=== PATIENT | male | born 1965 | race Two or more races ===

== ENCOUNTER 2018-10-24 13:44 | Inpatient (IN) | payer SELFPAY ==
[~2018-10-24] VITALS: Ht 162.6 cm; Wt 61.2 kg
[2018-10-24] VITALS (7 sets, daily range): BP systolic 100–118; BP diastolic 36–63
[2018-10-24] MEDS ORDERED: ONDANSETRON HCL 4MG/2ML INJ IV STA (14:11)
[2018-10-24] MEDS ORDERED: SODIUM CHLORIDE 0.9% 1,000 ML IV ONE (14:11)
[2018-10-24 15:02] LABS: INR 1.2; PROTHROMBIN TIME 12.6 sec (9.6-11.0)
[2018-10-24 15:03] LABS: CHLORIDE 104 mEq/L (98-107)
[2018-10-24 15:06] LABS: BASOPHILS % 0.3 % (0.0-2.0); EOSINOPHILS % 0.3 % (0.0-5.0); LYMPHOCYTES % 10.3 % (20.0-50.0); MEAN CORPUSCULAR HEMOGLOBIN 23.4 pg (28.0-32.0); MEAN CORPUSCULAR VOLUME 76.3 fL (80.0-94.0); MEAN PLATELET VOLUME 9.2 fl (7.4-10.4); MONOCYTES % 14.2 % (2.0-8.0); NEUTROPHILS % 74.9 % (40.0-76.0); RED BLOOD CELL COUNT 2.61 mill/uL (4.7-6.1); RED CELL DISTRIBUTION WIDTH 18.7 % (11.6-14.6)
[2018-10-24 15:11] LABS: ETHANOL BLOOD 218 mg/dL
[2018-10-24 15:14] LABS: HEMATOCRIT. 19.9 % (42.0-52.0); HEMOGLOBIN. 6.1 g/dL (14.0-18.0)
[2018-10-24] MEDS ORDERED: PANTOPRAZOLE SODIUM 40 MG/VIAL IV ONE (15:30)
[2018-10-24] MEDS ORDERED: MVI, ADULT NO.1 10 ML, FOLIC ACID 1 MG, THIAMINE HCL 100 MG in SODIUM CHLORIDE 0.9% 1,0... IV SCH ×4 (16:45)
[2018-10-24] MEDS ORDERED: MAGNESIUM/ALUMINUM HYDROXIDE/SIMETHICONE 30ML UDC PO PRN (16:45)
[2018-10-24] MEDS ORDERED: CLONIDINE 0.1MG TABLET PO PRN (16:45)
[2018-10-24] MEDS ORDERED: DOCUSATE SODIUM 100MG CAPSULE PO PRN (16:45)
[2018-10-24] MEDS ORDERED: GUAIFENESIN 200MG/10ML SUGAR FREE UDC PO PRN (16:45)
[2018-10-24] MEDS ORDERED: IPRATROPIUM/ALBUTEROL 0.5-3(2.5)MG/3ML NEB HHN PRN (16:45)
[2018-10-24] MEDS ORDERED: OCTREOTIDE 1,000 MCG in SODIUM CHLORIDE 0.9% 98 ML IV SCH ×2 (16:45→18:30)
[2018-10-24] MEDS ORDERED: ONDANSETRON HCL 4MG/2ML INJ IV PRN (16:45)
[2018-10-24 18:07] LABS: TOTAL IRON BINDING CAPACITY 347 ug/dL (250-450)
[2018-10-24 18:22] LABS: FOLIC ACID (FOLATE) SERUM 17.4 ng/mL (>5.38)
[2018-10-24] MEDS ORDERED: PANTOPRAZOLE 80 MG in SODIUM CHLORIDE 0.9% 100 ML IV SCH (19:30)
[2018-10-24 21:51] LABS: MEAN CORPUSCULAR HEMOGLOBIN 24.3 pg (28.0-32.0); MEAN CORPUSCULAR VOLUME 77.9 fL (80.0-94.0); RED BLOOD CELL COUNT 2.53 mill/uL (4.7-6.1); RED CELL DISTRIBUTION WIDTH 18.5 % (11.6-14.6)
[2018-10-24 21:54] LABS: HEMATOCRIT 19.7 % (42.0-52.0); HEMOGLOBIN 6.2 g/dL (14.0-18.0); PLATELET 26 x1000/uL (130-400)
[2018-10-24 21:57] LABS: CHLORIDE 109 mEq/L (98-107)
[2018-10-24 22:23] LABS: HEPATITIS B SURFACE ANTIGEN NEGATIVE
[2018-10-24 22:53] LABS: HEPATITIS A AB IGM NEGATIVE (NEGATIVE)
[2018-10-24] MEDS: PANTOPRAZOLE 80 MG in SODIUM CHLORIDE 0.9% 100 ML IV SCH (23:45)
[2018-10-25] VITALS (24 sets, daily range): BP systolic 115–144; BP diastolic 46–88
[2018-10-25 09:49] LABS: HEMATOCRIT 25.8 % (42.0-52.0); HEMOGLOBIN 8.4 g/dL (14.0-18.0)
[2018-10-25] MEDS: PANTOPRAZOLE 80 MG in SODIUM CHLORIDE 0.9% 100 ML IV SCH (12:14)
[2018-10-25] MEDS ORDERED: FENTANYL CITRATE/PF 50MCG/ML 2ML VIAL ONE (14:23)
[2018-10-25] MEDS ORDERED: MIDAZOLAM HCL 5 MG/5 ML VIAL ONE (14:23)
[2018-10-25] MEDS ORDERED: FENTANYL CITRATE/PF 50MCG/ML 2ML VIAL IV PRN (16:22)
[2018-10-25] MEDS ORDERED: MIDAZOLAM HCL 5 MG/5 ML VIAL IV PRN (16:28)
[2018-10-25] MEDS ORDERED: OCTREOTIDE 1,000 MCG in SODIUM CHLORIDE 0.9% 98 ML IV SCH ×2 (18:00→20:00)
[2018-10-25] MEDS: ACETAMINOPHEN 325MG TABLET PO PRN ×2 (18:26→23:43)
[2018-10-25] MEDS: LORAZEPAM 2MG/ML CPJ IV PRN (23:43)
[2018-10-26] VITALS (15 sets, daily range): BP systolic 112–155; BP diastolic 53–81
[2018-10-26] MEDS: PANTOPRAZOLE 80 MG in SODIUM CHLORIDE 0.9% 100 ML IV SCH ×2 (01:14→13:30)
[2018-10-26 09:59] LABS: PLATELET 35 x1000/uL (130-400)
[2018-10-26 10:21] LABS: CHLORIDE 107 mEq/L (98-107); HEMATOCRIT. 26.5 % (42.0-52.0); HEMOGLOBIN. 8.6 g/dL (14.0-18.0); MEAN CORPUSCULAR HEMOGLOBIN 27.3 pg (28.0-32.0); MEAN CORPUSCULAR VOLUME 84.5 fL (80.0-94.0); MEAN PLATELET VOLUME 8.3 fl (7.4-10.4); RED BLOOD CELL COUNT 3.14 mill/uL (4.7-6.1); RED CELL DISTRIBUTION WIDTH 20.1 % (11.6-14.6)
[2018-10-26 10:44] LABS: PLATELET 48 x1000/uL (130-400)
[2018-10-26] MEDS ORDERED: KCL 20MEQ/100ML PREMIX 100 ML IV SCH (13:00)
[2018-10-26 13:12] LABS: PLATELET ESTIMATE MARKEDLY DECREASED
[2018-10-26] MEDS: CEFTRIAXONE 1 G PREMIX 50 ML IV SCH (13:30)
[2018-10-27] VITALS (11 sets, daily range): BP systolic 103–144; BP diastolic 53–85
[2018-10-27] MEDS: LORAZEPAM 2MG/ML CPJ IV PRN ×5 (00:06→21:38)
[2018-10-27 06:39] LABS: INR 1.1; PROTHROMBIN TIME 11.6 sec (9.6-11.0)
[2018-10-27 06:50] LABS: HEMATOCRIT 28.3 % (42.0-52.0); HEMOGLOBIN 9.3 g/dL (14.0-18.0); MEAN CORPUSCULAR HEMOGLOBIN 27.1 pg (28.0-32.0); MEAN CORPUSCULAR VOLUME 82.9 fL (80.0-94.0); PLATELET 58 x1000/uL (130-400); RED BLOOD CELL COUNT 3.41 mill/uL (4.7-6.1); RED CELL DISTRIBUTION WIDTH 21.8 % (11.6-14.6)
[2018-10-27 06:52] LABS: CHLORIDE 106 mEq/L (98-107)
[2018-10-27] MEDS ORDERED: POTASSIUM CHLORIDE 20MEQ TABLET SR PO NR (08:15)
[2018-10-27] MEDS: CHLORDIAZEPOXIDE 5 MG CAPSULE PO SCH ×2 (08:47→14:00)
[2018-10-27] MEDS: CEFTRIAXONE 1 G PREMIX 50 ML IV SCH (11:53)
[2018-10-27] MEDS: CHLORDIAZEPOXIDE 25MG CAPSULE PO SCH (21:37)
[2018-10-28] VITALS (10 sets, daily range): BP systolic 76–144; BP diastolic 28–85
[2018-10-28] MEDS: LORAZEPAM 2MG/ML CPJ IV PRN ×2 (01:43→09:44)
[2018-10-28] MEDS: CHLORDIAZEPOXIDE 25MG CAPSULE PO SCH ×3 (06:42→21:58)
[2018-10-28] MEDS: CEFTRIAXONE 1 G PREMIX 50 ML IV SCH (12:52)
[2018-10-28] MEDS ORDERED: FOLIC ACID 1 MG, THIAMINE HCL 100 MG, MVI, ADULT NO.1 10 ML in DEXTROSE 5% WATER 1,000 ML IV NR ×4 (14:00)
[2018-10-28 15:19] LABS: HEMATOCRIT 29.5 % (42.0-52.0); HEMOGLOBIN 9.5 g/dL (14.0-18.0); MEAN CORPUSCULAR HEMOGLOBIN 27.1 pg (28.0-32.0); MEAN CORPUSCULAR VOLUME 84.4 fL (80.0-94.0); PLATELET 56 x1000/uL (130-400); RED CELL DISTRIBUTION WIDTH 21.9 % (11.6-14.6)
[2018-10-28] MEDS: ACETAMINOPHEN 325MG TABLET PO PRN (19:37)
[2018-10-29] VITALS (13 sets, daily range): BP systolic 84–125; BP diastolic 26–68
[2018-10-29] MEDS ORDERED: LACTULOSE 20G/30ML UDC PO SCH
[2018-10-29] MEDS ORDERED: FOLIC ACID 1 MG, THIAMINE HCL 100 MG, MVI, ADULT NO.1 10 ML in DEXTROSE 5% WATER 1,000 ML IV SCH ×8 (01:00→12:00)
[2018-10-29] MEDS: CHLORDIAZEPOXIDE 25MG CAPSULE PO SCH ×3 (06:06→21:24)
[2018-10-29 07:34] LABS: HEMATOCRIT. 28.5 % (42.0-52.0); HEMOGLOBIN. 9.2 g/dL (14.0-18.0); MEAN CORPUSCULAR VOLUME 83.9 fL (80.0-94.0); MEAN PLATELET VOLUME 8.8 fl (7.4-10.4); PLATELET 53 x1000/uL (130-400); RED CELL DISTRIBUTION WIDTH 21.4 % (11.6-14.6)
[2018-10-29 07:47] LABS: CHLORIDE 105 mEq/L (98-107)
[2018-10-29 07:54] LABS: INR 1.2; PROTHROMBIN TIME 12.3 sec (9.6-11.0)
[2018-10-29] MEDS ORDERED: POTASSIUM CHLORIDE 20MEQ TABLET SR PO SCH (09:00)
[2018-10-29] MEDS: LACTULOSE 20G/30ML UDC PO SCH ×3 (09:30→21:00)
[2018-10-29] MEDS: FERROUS SULFATE 325MG TABLET PO SCH ×2 (09:40→18:16)
[2018-10-29] MEDS: CEFTRIAXONE 1 G PREMIX 50 ML IV SCH (11:33)
[2018-10-29] MEDS ORDERED: MULTIVITAMINS,THER W-MINERALS TABLET PO SCH (12:00)
[2018-10-29] MEDS ORDERED: FOLIC ACID/VITAMIN B COMP W-C TABLET PO SCH (12:00)
[2018-10-29] MEDS ORDERED: THIAMINE HCL 100MG TABLET PO SCH (12:00)
[2018-10-29] MEDS: DEXT 5%/0.45% NACL 1000ML 1,000 ML IV SCH (14:42)
[2018-10-29 20:45] LABS: PLATELET ESTIMATE MARKEDLY DECREASED
[2018-10-30] VITALS (12 sets, daily range): BP systolic 97–134; BP diastolic 53–71
[2018-10-30] MEDS: DEXT 5%/0.45% NACL 1000ML 1,000 ML IV SCH ×3 (06:19→23:35)
[2018-10-30] MEDS: CHLORDIAZEPOXIDE 25MG CAPSULE PO SCH (06:19)
[2018-10-30 07:12] LABS: HEMATOCRIT. 28.7 % (42.0-52.0); HEMOGLOBIN. 9.2 g/dL (14.0-18.0); MEAN CORPUSCULAR VOLUME 84.3 fL (80.0-94.0); MEAN PLATELET VOLUME 9.5 fl (7.4-10.4); PLATELET 61 x1000/uL (130-400); RED BLOOD CELL COUNT 3.41 mill/uL (4.7-6.1); RED CELL DISTRIBUTION WIDTH 21.3 % (11.6-14.6)
[2018-10-30 07:30] LABS: CHLORIDE 107 mEq/L (98-107)
[2018-10-30] MEDS: THIAMINE HCL 100MG TABLET PO SCH (08:39)
[2018-10-30] MEDS: MULTIVITAMINS,THER W-MINERALS TABLET PO SCH (08:39)
[2018-10-30] MEDS: FERROUS SULFATE 325MG TABLET PO SCH ×2 (08:39→18:28)
[2018-10-30] MEDS: LACTULOSE 20G/30ML UDC PO SCH ×2 (08:40→21:41)
[2018-10-30] MEDS: FOLIC ACID/VITAMIN B COMP W-C TABLET PO SCH (08:40)
[2018-10-30 10:23] LABS: PLATELET ESTIMATE DECREASED
[2018-10-30] MEDS: CEFTRIAXONE 1 G PREMIX 50 ML IV SCH (11:53)
[2018-10-30] MEDS: CHLORDIAZEPOXIDE 5 MG CAPSULE PO SCH ×2 (14:20→21:41)
[2018-10-31] VITALS (7 sets, daily range): BP systolic 100–117; BP diastolic 43–68
[2018-10-31] MEDS: CHLORDIAZEPOXIDE 5 MG CAPSULE PO SCH (05:54)
[2018-10-31 06:31] LABS: HEMATOCRIT. 29.5 % (42.0-52.0); HEMOGLOBIN. 9.4 g/dL (14.0-18.0); MEAN CORPUSCULAR VOLUME 84.7 fL (80.0-94.0); MEAN PLATELET VOLUME 9.1 fl (7.4-10.4); PLATELET 62 x1000/uL (130-400); RED BLOOD CELL COUNT 3.48 mill/uL (4.7-6.1); RED CELL DISTRIBUTION WIDTH 21.7 % (11.6-14.6)
[2018-10-31 06:38] LABS: CHLORIDE 109 mEq/L (98-107)
[2018-10-31] MEDS: MULTIVITAMINS,THER W-MINERALS TABLET PO SCH (09:14)
[2018-10-31] MEDS: FERROUS SULFATE 325MG TABLET PO SCH (09:14)
[2018-10-31] MEDS: FOLIC ACID/VITAMIN B COMP W-C TABLET PO SCH (09:14)
[2018-10-31] MEDS: THIAMINE HCL 100MG TABLET PO SCH (09:14)
[2018-10-31] MEDS: LACTULOSE 20G/30ML UDC PO SCH (09:21)
[2018-10-31] MEDS ORDERED: FOLI-43 MT (10:38)
[2018-10-31] MEDS ORDERED: THIA50TA11 MT (10:38)
[2018-10-31] MEDS ORDERED: SUCR1TAB30 MT (10:39)
[2018-10-31] MEDS ORDERED: MULT-1146 MT (10:39)
[2018-10-31] MEDS ORDERED: PROT40 MT (10:39)
[2018-10-31] MEDS ORDERED: SENN-170 MT (10:40)
[2018-10-31] MEDS ORDERED: FERR325T6 MT (10:41)
[2018-10-31] MEDS ORDERED: LACT10SO7 MT (10:43)
[2018-10-31 10:45] LABS: PLATELET ESTIMATE DECREASED
[2018-10-31] MEDS: CEFTRIAXONE 1 G PREMIX 50 ML IV SCH (12:00)
== END 2018-10-31 12:15 | disposition home or self-care (01) ==
LOC: ER 13:44 → 5EST 15:57 → ENRESERV 16:29 → 5EST 18:40
PROVIDERS: ADMIT Internal Medicine; ATTEND Internal Medicine
PROC: 30233R1 Transfusion of Nonautologous Platelets into Peripheral Vein, Percutaneous Approach (ICD-10-PCS; principal; 2018-10-25)
PROC: 30233N1 Transfusion of Nonautologous Red Blood Cells into Peripheral Vein, Percutaneous Approach (ICD-10-PCS; 2018-10-25)
PROC: 06L38CZ Occlusion of Esophageal Vein with Extraluminal Device, Via Natural or Artificial Opening Endoscopic (ICD-10-PCS; 2018-10-25)
DX: K76.6 Portal hypertension (principal); I85.11 Secondary esophageal varices with bleeding; K72.90 Hepatic failure, unspecified without coma; D69.59 Other secondary thrombocytopenia; D62 Acute posthemorrhagic anemia; E44.1 Mild protein-calorie malnutrition; Y90.7 Blood alcohol level of 200-239 mg/100 ml; R00.1 Bradycardia, unspecified; K70.30 Alcoholic cirrhosis of liver without ascites; F10.239 Alcohol dependence with withdrawal, unspecified; K31.89 Other diseases of stomach and duodenum; K44.9 Diaphragmatic hernia without obstruction or gangrene; Z68.23 Body mass index [BMI] 23.0-23.9, adult
CPT/HCPCS: 36415; 71045; 76700; 80048; 80076; 80320; 82105; 82140; 82607; 82746; 83036; 83540; 83550; 83735; 85014; 85018; 85027; 85049; 86705; 86709; 86803; 86850; 86900; 86920; 86945; 87340; 93005; 96374; 97116; 97162; 97165; 99291; C9113; J0696; J2060; J2250; J2354; J2405; J3010; J3411; J3480; J3490; J7030; J7042; J7050; J7070; P9016; P9034; G0480

== ENCOUNTER 2020-11-30 23:32 | Inpatient (IN) | payer MEDICAID ==
[~2020-11-30] VITALS: Ht 157.5 cm; Wt 72.6 kg
[~2020-11-30 23:32] MED LIST: FERR325T6 MT; FOLI-43 MT; LACT10SO7 MT; MULT-1146 MT; PROT40 MT; SENN-257 MT; SUCR1TAB30 MT; THIA50TA12 MT
[2020-11-30] MEDS ORDERED: PANTOPRAZOLE SODIUM 40 MG/VIAL IV STA (23:39)
[2020-11-30] MEDS ORDERED: SODIUM CHLORIDE 0.9% 1,000 ML IV ONE (23:45)
[2020-11-30] MEDS ORDERED: OCTREOTIDE ACETATE 50 MCG/ML 1ML IV STA (23:47)
[2020-12-01 00:07] LABS: BASOPHILS % 0.5 % (0.0-2.0); EOSINOPHILS % 4.4 % (0.0-5.0); HEMOGLOBIN. 10.7 g/dL (14.0-18.0); LYMPHOCYTES % 26.5 % (20.0-50.0); MEAN CORPUSCULAR HEMOGLOBIN 34.8 pg (28.0-32.0); MEAN CORPUSCULAR VOLUME 100.5 fL (80.0-94.0); MEAN PLATELET VOLUME 8.7 fl (7.4-10.4); MONOCYTES % 8.7 % (2.0-8.0); NEUTROPHILS % 59.9 % (40.0-76.0); PLATELET 75 x1000/uL (130-400); RED BLOOD CELL COUNT 3.09 mill/uL (4.7-6.1); RED CELL DISTRIBUTION WIDTH 13.6 % (11.6-14.6)
[2020-12-01 00:15] LABS: CHLORIDE 109 mEq/L (98-107)
[2020-12-01 00:18] LABS: INR 1.2; PARTIAL THROMBOPLASTIN TIME 23.5 sec (23.4-31.0); PROTHROMBIN TIME 12.6 sec (9.6-11.0)
[2020-12-01] MEDS ORDERED: ONDANSETRON HCL 4MG/2ML INJ IV ONE ×2 (00:45→06:45)
[2020-12-01] MEDS ORDERED: CEFTRIAXONE 1 G PREMIX 50 ML IV ONE (00:45)
[2020-12-01] MEDS ORDERED: CALCIUM GLUCONATE 100MG/ML 10ML VIAL IV SCH (01:00)
[2020-12-01] MEDS ORDERED: SODIUM CHLORIDE 0.9% 1,000 ML IV ONE (01:45)
[2020-12-01] MEDS ORDERED: MORPHINE SULFATE 2 MG/ML CPJ (NOT FOR IM USE) IV SCH (05:30)
[2020-12-01] MEDS ORDERED: ONDANSETRON HCL 4MG/2ML INJ IV PRN (05:30)
[2020-12-01 08:00] VITALS: BP 105/49
[2020-12-01] MEDS ORDERED: DEXT 5%/0.45% NACL 500ML 1,000 ML IV ONE (08:00)
[2020-12-01] MEDS ORDERED: KCL 20MEQ/100ML PREMIX 100 ML IV SCH (08:00)
[2020-12-01] MEDS ORDERED: DEXT 5%/0.45% NACL 1000ML 1,000 ML IV ONE (10:15)
[2020-12-01] MEDS: PANTOPRAZOLE 80 MG in SODIUM CHLORIDE 0.9% 100 ML IV SCH ×2 (10:17→18:50)
[2020-12-01 11:12] LABS: BASOPHILS % 0.3 % (0.0-2.0); HEMATOCRIT. 26.8 % (42.0-52.0); HEMOGLOBIN. 9.1 g/dL (14.0-18.0); LYMPHOCYTES % 15.7 % (20.0-50.0); MEAN CORPUSCULAR HEMOGLOBIN 34.5 pg (28.0-32.0); MEAN CORPUSCULAR VOLUME 101.3 fL (80.0-94.0); MEAN PLATELET VOLUME 8.8 fl (7.4-10.4); MONOCYTES % 10.6 % (2.0-8.0); NEUTROPHILS % 72.4 % (40.0-76.0); PLATELET 55 x1000/uL (130-400); RED BLOOD CELL COUNT 2.64 mill/uL (4.7-6.1); RED CELL DISTRIBUTION WIDTH 13.8 % (11.6-14.6)
[2020-12-01 12:00] VITALS: BP 111/52
[2020-12-01] MEDS: OCTREOTIDE 1,000 MCG in SODIUM CHLORIDE 0.9% 98 ML IV SCH (12:04)
[2020-12-01 14:29] VITALS: BP 111/52
[2020-12-01] MEDS ORDERED: DEXT 5%/0.45% NACL 1000ML 1,000 ML IV SCH (16:00)
[2020-12-01 16:29] LABS: CHLORIDE 119 mEq/L (98-107)
[2020-12-01 20:00] VITALS: BP 128/70
[2020-12-01 20:14] LABS: *AMPHETAMINES SCREEN URINE NEGATIVE (NEGATIVE); *BARBITURATES SCREEN URINE NEGATIVE (NEGATIVE); *BENZODIAZEPINES SCREEN URINE NEGATIVE (NEGATIVE); *COCAINE SCREEN URINE NEGATIVE (NEGATIVE)
[2020-12-01 20:15] LABS: METHADONE URINE SCREEN NEGATIVE (NEGATIVE); OPIATES URINE SCREEN NEGATIVE (NEGATIVE)
[2020-12-01 20:16] LABS: CANNABINOID URINE SCREEN NEGATIVE (NEGATIVE); PHENCYCLIDINE URINE SCREEN NEGATIVE (NEGATIVE)
[2020-12-01] MEDS: PROPRANOLOL HCL 10MG TABLET PO SCH (20:38)
[2020-12-02] VITALS: BP 97/48
[2020-12-02 04:00] VITALS: BP 96/45
[2020-12-02] MEDS: OCTREOTIDE 1,000 MCG in SODIUM CHLORIDE 0.9% 98 ML IV SCH (05:01)
[2020-12-02 07:34] LABS: BASOPHILS % 0.6 % (0.0-2.0); EOSINOPHILS % 4.9 % (0.0-5.0); HEMATOCRIT. 23.1 % (42.0-52.0); HEMOGLOBIN. 7.8 g/dL (14.0-18.0); LYMPHOCYTES % 18.2 % (20.0-50.0); MEAN CORPUSCULAR HEMOGLOBIN 34.6 pg (28.0-32.0); MEAN CORPUSCULAR VOLUME 102.1 fL (80.0-94.0); MEAN PLATELET VOLUME 8.8 fl (7.4-10.4); MONOCYTES % 12.3 % (2.0-8.0); RED BLOOD CELL COUNT 2.26 mill/uL (4.7-6.1); RED CELL DISTRIBUTION WIDTH 14.2 % (11.6-14.6)
[2020-12-02 07:45] LABS: CHLORIDE 116 mEq/L (98-107)
[2020-12-02 07:51] LABS: TOTAL IRON BINDING CAPACITY 247 ug/dL (250-450)
[2020-12-02 08:17] LABS: VITAMIN B12 SERUM 991 pg/mL (211-911)
[2020-12-02] MEDS: PANTOPRAZOLE 80 MG in SODIUM CHLORIDE 0.9% 100 ML IV SCH ×2 (08:39→15:00)
[2020-12-02] MEDS: PROPRANOLOL HCL 10MG TABLET PO SCH ×2 (08:43→22:29)
[2020-12-02 11:30] LABS: FERRITIN 23 ng/mL (22-322)
[2020-12-02 11:42] LABS: HEPATITIS B SURFACE ANTIGEN NEGATIVE
[2020-12-02 12:00] VITALS: BP 97/42
[2020-12-02 12:37] LABS: PLATELET ESTIMATE MARKEDLY DECREASED
[2020-12-02 12:38] LABS: PLATELET 44 x1000/uL (130-400)
[2020-12-02 16:00] VITALS: BP 96/39
[2020-12-02 20:00] VITALS: BP 116/58
[2020-12-02 20:40] VITALS: BP 96/39
[2020-12-03] VITALS (10 sets, daily range): BP systolic 97–118; BP diastolic 41–54
[2020-12-03] MEDS: OCTREOTIDE 1,000 MCG in SODIUM CHLORIDE 0.9% 98 ML IV SCH ×2 (01:27→21:21)
[2020-12-03] MEDS: PANTOPRAZOLE 80 MG in SODIUM CHLORIDE 0.9% 100 ML IV SCH ×2 (01:28→11:02)
[2020-12-03 07:38] LABS: BASOPHILS % 0.3 % (0.0-2.0); EOSINOPHILS % 2.8 % (0.0-5.0); LYMPHOCYTES % 20.5 % (20.0-50.0); MEAN CORPUSCULAR HEMOGLOBIN 34.7 pg (28.0-32.0); MEAN CORPUSCULAR VOLUME 101.7 fL (80.0-94.0); MEAN PLATELET VOLUME 8.7 fl (7.4-10.4); MONOCYTES % 14.5 % (2.0-8.0); NEUTROPHILS % 61.9 % (40.0-76.0); RED BLOOD CELL COUNT 2.02 mill/uL (4.7-6.1); RED CELL DISTRIBUTION WIDTH 13.9 % (11.6-14.6)
[2020-12-03 07:49] LABS: HEMATOCRIT. 20.5 % (42.0-52.0)
[2020-12-03 08:43] LABS: CHLORIDE 114 mEq/L (98-107)
[2020-12-03] MEDS: PROPRANOLOL HCL 10MG TABLET PO SCH ×2 (09:00→21:00)
[2020-12-03 10:54] LABS: PLATELET 34 x1000/uL (130-400)
[2020-12-03 16:11] LABS: INR 1.1; PROTHROMBIN TIME 12.1 sec (9.6-11.0)
[2020-12-03 16:14] LABS: HEMATOCRIT 23.4 % (42.0-52.0); HEMOGLOBIN 8.1 g/dL (14.0-18.0)
[2020-12-03] MEDS ORDERED: GUAIFENESIN 200MG/10ML SUGAR FREE UDC PO PRN (16:45)
[2020-12-03] MEDS ORDERED: IPRATROPIUM/ALBUTEROL 0.5-3(2.5)MG/3ML NEB HHN PRN (16:45)
[2020-12-03] MEDS ORDERED: POTASSIUM CHLORIDE 20MEQ TABLET SR PO NR (17:45)
[2020-12-03] MEDS: DEXT 5%/0.45% NACL 1000ML 1,000 ML IV SCH (18:02)
[2020-12-04] VITALS: BP 110/57
[2020-12-04 03:56] VITALS: BP 101/49
[2020-12-04 06:31] LABS: INR 1.1; PROTHROMBIN TIME 12.2 sec (9.6-11.0)
[2020-12-04 06:33] LABS: BASOPHILS % 0.3 % (0.0-2.0); EOSINOPHILS % 2.5 % (0.0-5.0); HEMATOCRIT. 23.5 % (42.0-52.0); HEMOGLOBIN. 8.1 g/dL (14.0-18.0); LYMPHOCYTES % 12.5 % (20.0-50.0); MEAN CORPUSCULAR HEMOGLOBIN 34.6 pg (28.0-32.0); MEAN CORPUSCULAR VOLUME 99.8 fL (80.0-94.0); MEAN PLATELET VOLUME 9.1 fl (7.4-10.4); MONOCYTES % 10.3 % (2.0-8.0); NEUTROPHILS % 74.4 % (40.0-76.0); RED BLOOD CELL COUNT 2.35 mill/uL (4.7-6.1); RED CELL DISTRIBUTION WIDTH 14.4 % (11.6-14.6)
[2020-12-04] MEDS: DEXT 5%/0.45% NACL 1000ML 1,000 ML IV SCH (06:38)
[2020-12-04 06:44] LABS: PLATELET 46 x1000/uL (130-400)
[2020-12-04 06:56] LABS: CHLORIDE 112 mEq/L (98-107)
[2020-12-04 08:00] VITALS: BP 104/51
[2020-12-04] MEDS ORDERED: PANTOPRAZOLE SODIUM 40 MG/VIAL IV SCH (09:00)
[2020-12-04] MEDS: PROPRANOLOL HCL 10MG TABLET PO SCH (09:00)
== END 2020-12-04 11:34 | disposition left against medical advice (07) | DRG 253 ==
LOC: ER 23:32 → 8WST 12-01 01:06 → ENRESERV 12-01 05:03
PROVIDERS: ADMIT Internal Medicine; ATTEND Internal Medicine
PROC: 30233N1 Transfusion of Nonautologous Red Blood Cells into Peripheral Vein, Percutaneous Approach (ICD-10-PCS; principal; 2020-12-03)
DX: K92.0 Hematemesis (principal); E87.2 Acidosis; K70.31 Alcoholic cirrhosis of liver with ascites; E44.0 Moderate protein-calorie malnutrition; K76.6 Portal hypertension; D69.59 Other secondary thrombocytopenia; D62 Acute posthemorrhagic anemia; F10.10 Alcohol abuse, uncomplicated; K44.9 Diaphragmatic hernia without obstruction or gangrene; R73.9 Hyperglycemia, unspecified; E80.6 Other disorders of bilirubin metabolism; E87.8 Other disorders of electrolyte and fluid balance, not elsewhere classified; I10 Essential (primary) hypertension; Z20.822 Contact with and (suspected) exposure to COVID-19; D53.9 Nutritional anemia, unspecified; K31.89 Other diseases of stomach and duodenum; Z79.899 Other long term (current) drug therapy; Z71.41 Alcohol abuse counseling and surveillance of alcoholic; Z68.29 Body mass index [BMI] 29.0-29.9, adult
CPT/HCPCS: 36415; 71045; 76705; 80048; 80053; 80076; 80305; 82248; 82607; 82728; 82746; 82962; 83036; 83540; 83550; 83605; 83735; 84145; 85014; 85018; 85025; 85044; 85384; 86705; 86709; 86803; 86850; 86900; 86920; 87340; 87426; 93005; 99291; C1893; C9113; J0610; J0696; J2270; J2354; J2405; J3480; J7030; J7050; P9016